=== PATIENT | male | born 1985 | race Caucasian/White ===

== ENCOUNTER 2020-04-01 10:16 | Outpatient (REF) | payer BC, SELFPAY | END 2020-04-01 10:17 | disposition home or self-care (01) | LOC: HO.WFDLDS 10:16 | PROVIDERS: Visit Provider Internal Medicine | DX: Z20.828 Contact with and (suspected) exposure to other viral communicable diseases (principal) | CPT/HCPCS: 36415; C9803; U0003 ==

== ENCOUNTER 2021-12-27 08:52 | Outpatient (REF) | payer BC, SELFPAY ==
[2021-12-27 11:13] LABS: MANUAL DIFF FLAG NO
[2021-12-27 11:14] LABS: Appearance Urine Clear; Color Urine Yellow; Glucose Urine UA Negative (Negative); Leukocyte Esterase Urine Negative (Negative); Nitrite Urine Negative (Negative); Urine Blood Negative (Negative); Urine Ketones Negative (Negative); Urine Protein Negative (Neg-Trace)
[2021-12-27 11:15] LABS: Basophils Absolute Auto 0.1 X10*3/uL (0.0-0.2); Basophils Percent Auto 0.9 % (0-2); Eosinophils Absolute Auto 0.2 X10*3/uL (0.0-0.4); Hematocrit 43.6 % (42.0-52.0); Hemoglobin 14.8 g/dl (14.0-18.0); Imm Gran Abs Auto 0.01 X10*3/uL (0.00-0.03); Imm Gran Pct Auto 0.2 % (0.0-0.4); Lymphocytes Absolute Auto 1.6 X10*3/uL (1.2-4.9); Lymphocytes Percent Auto 28.6 % (20-40); Mean Corpuscular HGB Conc 33.9 g/dl (31.0-36.0); Mean Corpuscular Hemoglobin 30.1 pg (27.0-33.0); Mean Corpuscular Volume 88.6 fL (80.0-98.0); Monocytes Absolute Auto 0.4 X10*3/uL (0.1-1.2); Monocytes Percent Auto 7.7 % (2-11); Neutrophils Absolute Auto 3.2 x10*3/uL (2.0-8.3); Neutrophils Percent Auto 59.6 % (45-73); Platelet Count 278 X10*3/uL (160-400); Red Blood Count 4.92 X10*6/uL (4.60-5.80); Red Cell Distribution Width 12.1 % (11.0-16.0); White Blood Count 5.4 X10*3/uL (4.8-10.8)
[2021-12-27 11:20] LABS: Bacteria Urine None Seen (None Seen); Hyaline Casts Urine 0-2 /LPF (0-2); RBC Urine 0-2 /HPF (0-2); Squamous Epithelial Cell Urine 0-2 /HPF (0-2); WBC Urine 0-5 /HPF (0-5)
[2021-12-27 11:36] LABS: Alanine Aminotransferase 21 U/L (0-40); Albumin Level 4.7 g/dL (3.5-5.0); Alkaline Phosphatase 80 U/L (39-117); Anion Gap 13 (12-20); Aspartate Amino Transferase 24 U/L (5-37); Bilirubin Total 0.6 mg/dL (0.0-1.0); Blood Urea Nitrogen 13 mg/dL (9-16); Calcium 9.8 mg/dL (8.4-10.2); Carbon Dioxide 27 mmol/L (22-29); Chloride 105 mmol/L (96-108); Cholesterol 184 mg/dL; Estimated Glomerular Filt Rate > 60; Glucose Fasting 95 mg/dL (60-99); HDL Cholesterol 37 mg/dL; LDL Cholesterol Calculated 128 mg/dl; Potassium 4.3 mmol/L (3.3-5.1); Sodium 141 mmol/L (135-145); Total Protein 7.5 g/dL (6.5-8.0); Triglycerides 96 mg/dL
[2021-12-27 12:03] LABS: Thyroid Stimulating Hormone 3.89 uIU/mL (0.32-4.0)
== END 2021-12-27 08:53 | disposition home or self-care (01) ==
LOC: HO.HMGCLDS 08:52
PROVIDERS: PCP Internal Medicine; Visit Provider Internal Medicine
DX: Z00.00 Encounter for general adult medical examination without abnormal findings (principal)
CPT/HCPCS: 36415; 80053; 80061; 81001; 82306; 84443; 85025

== ENCOUNTER 2023-01-29 14:41 | Outpatient (AMB) | payer BC, SELFPAY ==
--- NOTE | 2023-01-29 14:57 | A.OFFVIS_ITS ---
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 He is a 37-year-old male with no significant past medical history on no current meds with no signif icant family history. Patient says recently has started playing competitive [employer] which requires running across the football feel an he has not been able to keep up. He gets symptoms of exertional shortness of breath and chest discomfort and fast heart rate. He said he cannot compete with much younger people. He is concerned about the symptoms though has they were not present in the past. He denies in his routine life any exertional symptoms. He used to drink heavily in the past but has now limited is drinking to the weekend. He has no other cardiac symptoms of orthopnea, PND, leg edema. No symptoms of palpitation rest. No lightheadedness, syncope. [facility] Family History Mother No problems noted. Father No problems noted. Social History Alcohol intake: current Alcohol intake frequency: a few times a week Review of Systems Const Denies chills, Denies daytime sleepiness, Denies fatigue, Denies fever(s), Denies frequent falls, Denies night sweats, Denies snoring, Denies weakness, Denies weight gain and Denies weight loss Eyes Denies loss of vision ENT Denies dizziness and Denies hearing loss Card Denies chest pain, Denies chest pain with activity, Denies syncope, Denies rapid heart rate, Denies edema, Denies claudication, Denies leg edema, Denies lightheadedness, Denies palpitations, Denies dyspnea, Denies dyspnea on exertion and Denies orthopnea Resp Denies cough, Denies excessive phlegm production, Denies dyspnea, Denies dyspnea on exertion, Denies snoring and Denies wheezing GI Denies abdominal pain, Denies hematochezia, Denies change in bowel habits, Denies change in stool character, Denies heartburn, Denies nausea and Denies vomiting Denies hematuria, Denies dysuria and Denies urinary frequency Musc Denies arthralgias, Denies muscle weakness, Denies numbness and Denies tingling Skin/Breast Denies nail changes and Denies rash Neuro Denies Abnormal speech present, Denies dizziness, Denies syncope, Denies frequent falls, Denies loss of vision, Denies memory loss, Denies numbness, Denies tingling and Denies weakness Psych Denies depression and Denies memory loss Endo Denies fatigue and Denies palpitations Aller/Immun Denies wheezing Physical Exam Vital Signs: Last Vital Signs Pulse 64 01/29/23 14:59 BP 112/74 01/29/23 14:59 BMI result Body Mass Index 29.2 Const General: cooperative, comfortable, no acute distress, alert and awake Nutritional Appearance: overweight Orientation/consciousness: patient oriented x3 Limitations: no limitations HEENT Head: Yes normocephalic and Yes atraumatic Neck Neck: Yes trachea midline, Yes supple and Yes no JVD Resp Effort & Inspection: normal respiratory effort Auscultation: clear to auscultation bilaterally Cardio Jugular venous distension: no JVD Palpation: normal PMI Rate: regular rate Rhythm: regular rhythm Heart sounds: S1 normal heart sound present, S2 normal heart sound present, no click, no gallops, no murmurs and no rubs GI Auscultation: normal bowel sounds Skin General skin exam: no rashes or lesions noted Neuro General: patient oriented x3 and no focal motor deficits Speech: No Abnormal speech present Extrem General: Yes no clubbing, cyanosis or edema Office Procedures EKG Details: EKG shows normal sinus rhythm with normal EKG 75065-[id number], Complete Assessment & Plan Assessment & Plan (1) Exertional dyspnea: Code(s): R06.09 - Other forms of dyspnea Plan: Exertional shortness of breath in this young man without any prior risk factors or any medical problems. Most likely suggestive physical deconditioning. Although he has prior history of alcohol use and need to rule out LV systolic dysfunction and cardiomyopathy. Also myocardial ischemia is less likely but will suggest to treadmill stress test to evaluate for exercise capacity and any sign of myocardial ischemia. Further treatment based on the finding. If these are within normal limits advised him to participate in gradual increasing aerobic exercise activity to improve his functional capacity. Follow up in the clinic in 4 weeks time, sooner p.r.n.. Thank you for allowing me to partake in his care Coding Level of Care Code New Pt Level 3 (84871) Diagnoses Exertional dyspnea R06.09 CPT Codes EKG - CPT: 73382-[id number], Complete ([id number])
[2023-01-29 14:59] VITALS: BP 112/74; PULSE 64; BMI 29.2
== END 2023-01-29 15:24 | disposition home or self-care (01) ==
PROVIDERS: PCP Internal Medicine; Visit Provider Internal Medicine Cardiovascular Disease
DX: R06.09 Other forms of dyspnea (principal)
CPT/HCPCS: 93010; 99203

== ENCOUNTER → 2023-01-29 14:41 | Outpatient (BNVA) | payer BC, SELFPAY | PROVIDERS: PCP Internal Medicine; Visit Provider Internal Medicine Cardiovascular Disease | DX: R06.09 Other forms of dyspnea (principal); R07.89 Other chest pain | CPT/HCPCS: 93005 ==

== ENCOUNTER → 2023-03-08 07:57 | Outpatient (REF) | payer BC, SELFPAY ==
--- NOTE | 2023-03-08 08:00 | CA_ITS ---
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 The visually estimated ejection fraction is between 55-60%. Diastolic function is normal for age. - Normal right ventricular cavity size and systolic function. - There is mild dilatation of the sinuses of Valsalva measuring 3.80 cm. Findings Left Ventricle Normal left ventricular size, thickness, systolic function, and wall motion. The visually estimated ejection fraction is between 55-60%. Diastolic function is normal for age. Right Ventricle Normal right ventricular cavity size and systolic function. Atria Both atria are normal in size. Aortic Valve Normal aortic valve structure and function. There is no aortic valve stenosis. There is no aortic valve regurgitation. Mitral Valve The mitral valve appears normal. There is trace mitral valve regurgitation. There is no mitral valve stenosis. Pulmonic Valve The pulmonic valve is normal. There is no pulmonic valve regurgitation. Tricuspid Valve Normal tricuspid valve structure and function. There is trace tricuspid valve regurgitation. Tricuspid regurgitation envelope is inadequate for calculation of right ventricular systolic pressure. Normal right atrial pressure. Great Vessels There is mild dilatation of the sinuses of Valsalva measuring 3.80 cm. The visualized portions of the pulmonary artery and branches are normal. Venous The inferior vena cava is normal in size and collapses greater than 50% with inspiration. Pericardium/Pleural There is no evidence of pericardial effusion. Prior Study Comparison No prior study available for comparison. Measurements 2D Linear Measurements IVSd: 1.04 0.6-0.9/0.6-1.0 cm LVIDd: 4.88 3.9-5.3/4.2-5.9 cm LVIDd Index: 2.49 2.4-3.2/2.2-3.1 cm/m2 LVIDs: 3.22 2.0-3.6 cm LVPWd: 1.06 0.7-1.1 cm LA Diam: 3.70 2.7-3.8/3.0-4.0 cm LAIDs Index: 1.89 1.5-2.3 cm/m2 LV Mass: 232.81 67-162/88-224 g LV Mass Index: 118.78 43-95/49-115 g/m2 LVOT Diam: 2.20 3.0+(-)1.3 cm 2D Systolic Function EF 4C: 62.90 >55% EF 2C: 57.60 >55% EF BiP: 60.70 >55% Mitral Valve MV Pk E: 0.79 MV PK A: 0.28 MV Decel Time: 218.00 E/A: 2.80 E'Lateral: 14.50 E'Medial: 9.79 E/E' Med: 8.10 E/E' Lat: 5.40 PHT: 64.00 MVA PHT: 3.44 Decel Humphreys: 3.62 Aortic Valve AoV Pk Ab: 1.03 AoV Pk Grad: 4.00 PAVEL: 3.44 LVOT LVOT Pk Ab: 0.93 LVOT Mn Ab: 0.65 LVOT VTI: 0.19 LVOT Pk Grad: 3.00 LVOT Mn Grad: 2.00 LVOT Diam: 2.20 LVOT Area: 3.80 Diastolic Function MV Pk E: 0.79 MV Pk A: 0.28 E/A: 2.80 E'Medial: 9.79 E/E' Med: 8.10 E' Laterial: 14.50 E/E' Lat: 5.40 Right Ventricle TAPSE (mm): 18.40 TVS' Ab: 11.10 Tricuspid Valve RA Press: 3.00 Great Vessels Aorta Sinus of Valsalva: 3.80 2.0-3.5 cm Ao Asc: 2.70 2.1-3.4 cm Pulmonary Veins Pulm Vein S/D 0.50 Pulmonary Valve PV Pk Ab: 0.88 Peak PV Grad: 3.00 Updated in Other Vendor System with Status of Final William Storey MD electronically signed on 03/09/2023 8:06:14 PM with status of Final
--- NOTE | 2023-03-08 08:00 | CA_ITS ---
Acquisition Time: 2023-03-08 08:46:46 Total Exercise Time: 00:09:36 Test Indications: Dyspnea CP Medications: NONE Protocol: RADHA Max HR: 169 BPM 91% of Pred: 185 BPM Max BP: 170/090 mmHG Max Work Load: 11.0 METS Exericise stress test exercise 9 min 36 sec of Radha protocol achieving 91% MPHR, with 6/10 chest pressure at peak exercise, with mild SOB, without arrhythmias, with resting 140/88 max bp 170/90, with scooping noted in V6. Chest discomfort resolved with rest.Test reviewed with Dr. Storey. Referred By: Brii Sanchez Overread By: Brii Sanchez
== END ==
LOC: HO.CARD 07:57
PROVIDERS: PCP Internal Medicine; Visit Provider Nurse Practitioner
DX: R07.9 Chest pain, unspecified (principal); R06.02 Shortness of breath
CPT/HCPCS: 93017; 93306

== ENCOUNTER → 2023-03-08 08:00 | Outpatient (BNV) | payer BC, SELFPAY | PROVIDERS: PCP Internal Medicine; Visit Provider Nurse Practitioner | DX: R07.9 Chest pain, unspecified (principal); R00.1 Bradycardia, unspecified | CPT/HCPCS: 93016; 93018; 93306 ==

== ENCOUNTER → 2023-04-19 10:49 | Outpatient (REF) | payer BC, SELFPAY ==
--- NOTE | 2023-04-19 10:51 | CA_ITS ---
Acquisition Time: 2023-04-19 10:48:27 Total Exercise Time: 00:11:29 Test Indications: Dyspnea Medications: NONE Protocol: RADHA Max HR: 173 BPM 93% of Pred: 185 BPM Max BP: 170/064 mmHG Max Work Load: 13.4 METS Exercise stress test exercise 11 min 29 sec of Radha protocol acheiving 88% MPHR, without anginal symptoms, with isolated PVC, with normotensive response to exercise, without EKG changes. BP dropped to 88/60. during the end of echo images with reported dizziness which resolved. Echo images obtained by tech at rest and immedately post peak exercise. Definity contrast used. Test reviewed with Dr. Storey . Referred By: Ed Dia Overread By: Brii Sanchez
== END ==
LOC: HO.CARD 10:49
PROVIDERS: PCP Internal Medicine; Visit Provider Internal Medicine Cardiovascular Disease
DX: R06.09 Other forms of dyspnea (principal)
CPT/HCPCS: 93350; Q9957

== ENCOUNTER → 2023-04-19 10:51 | Outpatient (BNV) | payer BC, SELFPAY | PROVIDERS: PCP Internal Medicine; Visit Provider Nurse Practitioner | DX: R06.09 Other forms of dyspnea (principal) | CPT/HCPCS: 93016; 93018; 93350; 93352 ==